=== PATIENT | female | born 1975 | race Caucasian/White ===

== ENCOUNTER 2018-11-08 23:09 | Emergency (ER) | payer SELFPAY ==
--- NOTE | 2018-11-08 23:21 | EDM.PDOC ---
ED HPI GENERAL MEDICAL PROBLEM - General Chief Complaint: Head Injury Stated Complaint: CUT ON FOREHEAD Time Seen by Provider: 11/08/18 23:21 Source of Information: Reports: Patient - History of Present Illness INITIAL COMMENTS - FREE TEXT/NARRATIVE: HISTORY AND PHYSICAL: History of present illness: [Patient presents clinically intoxicated by alcohol, chest fall outside and we think she struck her head on a garbage can per family, she has a 4 cm linear laceration simple on the forehead above the left eye just left of the nasal bridge Otherwise alert intoxicated cooperative no fever nausea vomiting chills sweats ] Review of systems: As per history of present illness and below otherwise all systems reviewed and negative. Past medical history: As per history of present illness and as reviewed below otherwise noncontributory. Surgical history: As per history of present illness and as reviewed below otherwise noncontributory. Social history: No reported history of drug or alcohol abuse. Family history: As per history of present illness and as reviewed below otherwise noncontributory. Physical exam: HEENT: Atraumatic, normocephalic, pupils reactive, negative for conjunctival pallor or scleral icterus, mucous membranes moist, throat clear, neck supple, nontender, trachea midline. Lungs: Clear to auscultation, breath sounds equal bilaterally, chest nontender. Heart: S1S2, regular, negative for clicks, rubs, or JVD. Abdomen: Soft, nondistended, nontender. Negative for masses or hepatosplenomegaly. Negative for costovertebral tenderness. Pelvis: Stable nontender. Genitourinary: Deferred. Rectal: Deferred. Extremities: Atraumatic, negative for cords or calf pain. Neurovascular unremarkable. Neuro: Awake, alert, oriented. Cranial nerves II through XII unremarkable. Cerebellum unremarkable. Motor and sensory unremarkable throughout. Exam nonfocal. Skin as per history of present illness Diagnostics: [Head CT no contrast Cervical spine no contrast ] Therapeutics: [Status is updated I discussed CT findings the head with patient and the patient's daughter they did not want to stay here in the ER for 3-4 more hours the daughter will be staying with her mother tonight and they want to return at approximately 6 AM for repeat head CT ] Impression: [ laceration4 cm linear simple ] Definitive disposition and diagnosis as appropriate pending reevaluation and review of above. forehead area Pain Score (Numeric/FACES): 5 - Related Data Allergies Allergy/AdvReac Type Severity Reaction Status Date / Time No Known Allergies Allergy Verified 11/08/18 23:32 Home Meds: Home Meds . [No Known Home Meds] 11/08/18 [History] ED ROS GENERAL - Review of Systems Review Of Systems: See Below ED EXAM, HEAD INJURY - Physical Exam Exam: See Below Course - Vital Signs Last Recorded V/S: Last Vital Signs Temp 97.3 F 11/08/18 23:10 Pulse 93 11/08/18 23:10 Resp 18 11/08/18 23:10 BP 125/83 11/08/18 23:10 Pulse Ox 95 11/08/18 23:10 - Orders/Labs/Meds Orders: Active Orders 24 hr Category Date Time Status Vaccines to be Administered [RC] PER UNIT ROUTINE Care 11/08/18 23:49 Active Cervical Spine wo Cont [CT] Stat Exams 11/08/18 23:22 Taken Meds: Medications Discontinued Medications Generic Name Dose Route Start Last Admin Trade Name Brooks PRN Reason Stop Dose Admin Diphtheria/Tetanus/Acell Pertussis 0.5 ml 11/08/18 23:49 11/09/18 00:03 Adacel IM 11/08/18 23:50 0.5 ml .ONCE ONE Administration Lidocaine HCl Confirm 11/09/18 00:14 11/09/18 00:20 Xylocaine-Mpf 1% Administered 11/09/18 00:15 Not Given Dose 10 mls @ as directed .ROUTE .STK-MED ONE Lidocaine HCl 10 ml 11/09/18 00:10 11/09/18 00:20 Xylocaine 1% INJECT 11/09/18 00:11 Not Given ONETIME ONE Lidocaine HCl 10 ml 11/09/18 00:19 Xylocaine-Mpf 1% INJECT 11/09/18 00:20 ONETIME ONE Departure - Departure Time of Disposition: 00:42 Disposition: Home, Self-Care 01 Condition: Good Clinical Impression: Laceration - Discharge Information Referrals: PCP,None [Primary Care Provider] - Forms: ED Department Discharge Additional Instructions: Return in 6 AM as discussed for repeat head CT Return sooner if any new concerning symptoms develop - My Orders Last 24 Hours: My Active Orders 11/08/18 23:22 Cervical Spine wo Cont [CT] Stat 11/08/18 23:49 Vaccines to be Administered [RC] PER UNIT ROUTINE - Assessment/Plan Last 24 Hours: My Active Orders 11/08/18 23:22 Cervical Spine wo Cont [CT] Stat 11/08/18 23:49 Vaccines to be Administered [RC] PER UNIT ROUTINE
[2018-11-08] MEDS ORDERED: Diphtheria,Pertussis(Acell),Tetanus Vaccine 0.5 ML Syringe IM ONE (23:49)
[2018-11-09] MEDS ORDERED: Lidocaine 1% 10 ML MDV INJECT ONE (00:10)
--- NOTE | 2018-11-09 00:39 | CT ---
INDICATION: Injury. Pain TECHNIQUE: CT head without contrast. COMPARISON: None available FINDINGS: The ventricles and sulci are within normal limits for the patient`s age. There is no mass effect or midline shift. There is no loss of dela cruz-white differentiation. There is an apparent small focal extra-axial density underlying the anterior frontal calvarium, left of midline on images 38 and 39, which could be related to a dual vessel. There is a small nonspecific calcification in the anteromedial left cerebellum. No acute calvarial fracture is seen. There is an anterior frontal scalp hematoma, left of midline, with an overlying laceration. A mildly hypoplastic right maxillary sinus is seen. There is a small focus of mild mucosal thickening in the left maxillary sinus. The mastoid air cells are clear. The visualized orbits are within normal limits. IMPRESSION: An anterior frontal scalp hematoma and laceration. An apparent small underlying extra-axial density could be related to a dural vein, however, a short-term followup study in 4-8 hours is recommended, to exclude a small collection of extra-axial blood. Dictated by Abimael Stubbs MD @ 11/09/2018 12:38:42 AM Please note that all CT scans at this facility use dose modulation, iterative reconstruction, and/or weight-based dosing when appropriate to reduce radiation dose to as low as reasonably achievable. Dictated by: Abimael Stubbs MD @ 11/09/2018 00:38:49 (Electronically Signed)
--- NOTE | 2018-11-09 00:45 | CT ---
INDICATION: Injury TECHNIQUE: CT cervical spine without contrast. COMPARISON: None available FINDINGS: There is straightening of the cervical lordosis. The craniocervical and atlantoaxial alignments are near anatomical. There is no evidence of an acute cervical spine fracture. There is no significant precervical soft tissue swelling. Mild degenerative changes are seen. IMPRESSION: No evidence of an acute cervical spine fracture. Dictated by Abimael Stubbs MD @ 11/09/2018 12:44:23 AM Please note that all CT scans at this facility use dose modulation, iterative reconstruction, and/or weight-based dosing when appropriate to reduce radiation dose to as low as reasonably achievable. Dictated by: Abimael Stubbs MD @ 11/09/2018 00:44:37 (Electronically Signed)
[2018-11-09] MEDS ORDERED: Sodium Chloride 0.9% 1,000 ML IV ONE (00:56)
[2018-11-09] MEDS ORDERED: Sodium Chloride 0.9% 1,000 ML IV SCH (01:45)
[2018-11-09 02:00] LABS: CHLORIDE,CL 107 mmol/L (98-107); SODIUM,NA 143 mmol/L (136-145)
--- NOTE | 2018-11-09 13:04 | CT ---
EXAM DATE: 11/08/18 PATIENT'S AGE: 43 Patient: JACKI AIKEN Facility: [facility] . Site : 1975 Study: CT-Head [id number]/2/2019 4:28:13 AM Ordering Physician: Pepe Nash Final Report: INDICATION: Head trauma TECHNIQUE: CT head without contrast. COMPARISON: Head CT November 08, 2018 FINDINGS: CSF spaces: Within normal limits for age. Brain parenchyma: The dela cruz-white differentiation is normal. No sign of mass, hemorrhage, or midline shift. Skull base and calvarium: The visualized paranasal sinuses and mastoid air cells demonstrate no acute or significant findings. The visualized orbits are grossly unremarkable. No skull fractures. There is a frontal scalp contusion. IMPRESSION: No intracranial hemorrhage or skull fracture. Frontal scalp contusion. Please note that all CT scans at this facility use dose modulation, iterative reconstruction, and/or weight-based dosing when appropriate to reduce radiation dose to as low as reasonably achievable. Dictated by Nilsa Bal MD @ Nov 09 2018 4:40AM Signed by: Nilsa Bal MD @11/09/2018 4:43:13 AM (Electronic Signature) Report Signed by Proxy. [facility]
== END 2018-11-09 05:24 | disposition home or self-care (01) ==
LOC: MW.ED 23:09
DX: S01.81XA Laceration without foreign body of other part of head, initial encounter (principal); W18.30XA Fall on same level, unspecified, initial encounter; F10.929 Alcohol use, unspecified with intoxication, unspecified; Z23 Encounter for immunization; Y90.9 Presence of alcohol in blood, level not specified
CPT/HCPCS: 36415; 70450; 72125; 80053; 81001; 84484; 85025; 90471; 90715; 93005; 96360; 96361; 99284; J2001; J7040; 99283